=== PATIENT | female | born 1985 | race Caucasian/White ===

== ENCOUNTER 2020-11-05 10:19 | Emergency (ER) | payer BC ==
[~2020-11-05] VITALS: Ht 172.7 cm; Wt 98.9 kg
[2020-11-05] MEDS ORDERED: LEVO-T25 MCG PO (10:47)
[2020-11-05 11:58] LABS: ABSOLUTE LYMPHOCYTES 1.1 thou/uL (0.8-5.3); ABSOLUTE MONOCYTES 0.5 thou/uL (0.0-1.2); ABSOLUTE NEUTROPHILS 2.6 thou/uL (1.6-8.1); BASOPHILS 0.9 %; HEMATOCRIT 41.5 % (37.0-47.0); HEMOGLOBIN 14.3 gm/dL (12.0-15.0); LYMPHOCYTES 26.9 %; MCH 29.9 pg (26.0-34.0); MCHC 34.4 g/dL (28.0-37.0); MONOCYTES 11.1 %; MPV 8.3 fl. (7.2-11.1); NUCLEATED RBCS 0 /100WBC; PLATELET COUNT* 228 thou/uL (150-400); POLYS 61.1 %; RBC 4.77 mil/uL (4.20-5.00); RDW-CV 13.2 % (10.5-14.5); WBC 4.3 thou/uL (4.0-11.0)
[2020-11-05 12:08] LABS: CALCIUM 8.5 mg/dL (8.5-10.1); CREATININE 1.1 mg/dL (0.6-1.3); POTASSIUM 3.5 mmol/L (3.5-5.1)
[2020-11-05 12:16] LABS: ALBUMIN 3.6 g/dL (3.4-5.0); TOTAL BILIRUBIN 0.3 mg/dL (<0.1-1.0); TOTAL PROTEIN 7.8 g/dL (6.4-8.2)
--- NOTE | 2020-11-05 12:33 | EKG ---
[place] [address] ELECTROCARDIOGRAM REPORT Name: CONNOR GARCIA Room: [facility]#: [id number] Admission: 11/05/20 Attend Phys: Discharge: Date of : 81 Date of Service: 11/05/20 1153 Report #: [id number] THIS REPORT FOR: //name// [facility] ED Test Date: 2020-11-05 Test Time: 11:53:39 Pat Name: CONNOR GARCIA Department: Room: Gender: F Production Tester: CORBY : 1985 Requested By: Bee Fields Order Number: [id number] MD: Jesus Moctezuma Measurements Intervals [place] Rate: 104 P: 7 VT: 190 QRS: 23 QRSD: 78 T: 162 QT: 295 QTc: 388 Interpretive Statements Sinus tachycardia Consider left ventricular hypertrophy Anterior Q waves, possibly due to LVH Nonspecific T abnormalities, lateral leads No previous ECG available for comparison Electronically Signed On 11-05-2020 12:32:56 CDT by Jesus Moctezuma [email or web address] <ELECTRONICALLY SIGNED> By: Jesus Moctezuma MD, [facility] 11/05/20 1232 1153 1153 Jesus Moctezuma MD, [facility] /EPI
[2020-11-05] MEDS ORDERED: FLEXERIL PO (14:09)
[2020-11-05] MEDS ORDERED: REGLAN 10 MG TA10 MG PO (14:09)
[2020-11-05] MEDS ORDERED: VENTOLIN HFA 1818 GM INH (14:09)
[2020-11-05] MEDS ORDERED: TESSALON PERLE100 MG PO (14:09)
[2020-11-05 14:49] VITALS: BP 122/68
== END 2020-11-05 14:50 | disposition home or self-care (01) ==
LOC: M.ERS 10:19
PROVIDERS: Nurse Practitioner Family
DX: U07.1 COVID-19 (principal)